=== PATIENT | female | born 1935 | race Caucasian/White ===

== ENCOUNTER → 2017-07-14 | Outpatient (CLI) | payer OTHER ==
[~2017-07-14] MED LIST: AMLO10TA4 PO; ATOR40TA69 PO; DHCO1CAP16 PO; ESCI20TA PO; FLUP1 PO; HYDR12.516 PO; LISI40TA4 PO; METO50TA9 PO; MULT-1203 PO; VITA1CAP PO; VITA400C25 PO
== END | disposition home or self-care (01) ==
LOC: OIH 16:44
PROVIDERS: ATTEND Family Medicine
DX: M17.12 Unilateral primary osteoarthritis, left knee (principal); M25.462 Effusion, left knee
CPT/HCPCS: 73562

== ENCOUNTER → 2017-08-25 | Outpatient (CLI) | payer OTHER | END | disposition home or self-care (01) | LOC: OIH 15:36 | PROVIDERS: ATTEND Family Medicine | DX: M19.011 Primary osteoarthritis, right shoulder (principal); M17.11 Unilateral primary osteoarthritis, right knee | CPT/HCPCS: 73030; 73562 ==

== ENCOUNTER → 2018-02-27 | Outpatient (CLI) | payer OTHER | END | disposition home or self-care (01) | LOC: OIH 16:03 | PROVIDERS: ATTEND Family Medicine | DX: M47.896 Other spondylosis, lumbar region (principal); M48.061 Spinal stenosis, lumbar region without neurogenic claudication; M41.86 Other forms of scoliosis, lumbar region; M47.892 Other spondylosis, cervical region | CPT/HCPCS: 72040; 72100; 72220 ==

== ENCOUNTER 2018-03-19 16:44 | Emergency (ER) | payer OTHER ==
[2018-03-19 18:00] LABS: BASOPHILS % (AUTO) 0.7 % (0.0-5.0); EOSINOPHILS % (AUTO) 2.9 % (0.0-8.0); HEMATOCRIT 35.6 % (36-48); LYMPHOCYTES % (AUTO) 20.3 % (21.0-51.0); MEAN CORPUSCULAR HEMOGLOBIN 24.7 pg (27.0-33.0); MEAN CORPUSCULAR HGB CONC 31.9 g/dL (32.0-36.0); MEAN CORPUSCULAR VOLUME 77.5 fL (79-99); NEUTROPHILS % (AUTO) 68.1 % (40.0-77.0); NUCLEATED RED BLOOD CELLS 0.1 % (0.0-0.19); PLATELET COUNT (AUTO) 289 K/uL (130-400); RED BLOOD CELL COUNT(AUTO) 4.59 MIL/uL (4.00-5.50); RED CELL DISTRIBUTION WIDTH 16.1 % (11.0-15.5); WHITE BLOOD COUNT (AUTO) 6.1 K/uL (4.8-10.8)
[2018-03-19 18:02] LABS: APPEARANCE,URINE CLEAR (CLEAR); BILIRUBIN,URINE NEGATIVE (NEGATIVE); COLOR,URINE YELLOW (YELLOW); GLUCOSE, URINE (UA) NEGATIVE (NEGATIVE); KETONES,URINE NEGATIVE (NEGATIVE); LEUKOCYTE ESTERASE ,URINE NEGATIVE (NEGATIVE); NITRATE,URINE NEGATIVE (NEGATIVE); OCCULT BLOOD,URINE NEGATIVE (NEGATIVE); PROTEIN,URINE NEGATIVE (NEGATIVE); UROBILINOGEN,URINE 0.2 mg/dL (0.2-1.0)
[2018-03-19 18:18] LABS: POTASSIUM 3.4 mmol/L (3.5-5.1)
[2018-03-19 18:23] LABS: ALBUMIN 3.9 g/dL (3.5-5.0); BILIRUBIN,TOTAL 0.5 mg/dL (0.2-1.0); TOTAL PROTEIN, SERUM 7.4 g/dL (6.0-8.3)
== END 2018-03-19 18:49 | disposition home or self-care (01) ==
LOC: EDH 16:44
DX: R53.1 Weakness (principal); H70.90 Unspecified mastoiditis, unspecified ear; R51 Headache; G89.29 Other chronic pain; I10 Essential (primary) hypertension; M19.90 Unspecified osteoarthritis, unspecified site; Z98.51 Tubal ligation status
CPT/HCPCS: 36415; 70450; 80053; 81003; 84484; 85025

== ENCOUNTER → 2018-08-10 | Outpatient (CLI) | payer OTHER ==
--- NOTE | 2018-08-10 13:57 | NUR ---
MBSS COMPLETED. -S/S OF ASPIRATION. RECOMMEND MECHANICAL SOFT/CHOPPED, THIN LIQUIDS; PILLS WHOLE WITH LIQUIDS. PATIENT INFORMATION: Pt IS AN 82 YEAR OLD FEMALE REFERRED FOR AN MBSS SECONDARY TO COMPLAINS OF DIFFICULTY SWALLOWING. PT COOPERATIVE DURING THE EVALUATION. Pt REPORTS THAT SHE HAS GLOBUS SENSATION DURING P.O. Pt REPORTS A RECENT DIAGNOSIS OF PARKINSON'S DISEASE AND THYROID ISSUES. MBSS INTERPRETATION: Pt PRESENTS WITH MILD ORAL AND MILD-MODERATE PHARYNGEAL DYSPHAGIA CAUSED BY DECREASED ORAL MOTOR COORDINATION, MILDLY DELAYED PHARYNGEAL RESPONSE AND POCKET FORMED IN POSTERIOR PHARYNGEAL WALL ABOVE UPPER ESOPHAGEAL SPHINCTER (POSSIBLE ZENKER'S DIVERTICULUM), EVIDENCED BY POOLING IN THE VALLECULAE (CLEARED WITH RE-SWALLOW) AND POOLING OF BOLUS ABOVE UPPER ESOPHAGEAL SPHINCTER. NO PENETRATION OR ASPIRATION PRESENT AT THE TIME OF THE EVALUATION. TRIALS: 1. TSP PUREED: GOOD 2. TSP PUDDING: GOOD 3. MIXED TEXTURE: GOOD 4. TSP THIN LIQUIDS: GOOD 5. CUP SIP THIN LIQUIDS: GOOD RECOMMENDATIONS: 1. MECHANICAL SOFT/CHOPPED, THIN LIQUIDS; PILLS WHOLE WITH LIQUIDS. 2. COMPENSATORY STRATEGIES: *SEATED AT 90 *SLOW RATE *RE-SWALLOW *ALTERNATE BITES AND SIP 3. GI CONSULT SECONDARY TO POSSIBLE ZENKER'S DIVERTICULUM. MOSAIC TECHNICIAN PROVIDED PT AND CAREGIVER WITH WRITTEN HANDOUT OF RECOMMENDATIONS. THEY VERBALIZED UNDERSTANDING AND COMPLIANCE WITH RECOMMENDATIONS. G-CODE SWALLOWING: [id number] Addendum: 08/10/18 at 1406 by YOLY GAINES, [facility] Amended: Links added.
== END | disposition home or self-care (01) ==
LOC: RAH 10:01
PROVIDERS: ATTEND Family Medicine
DX: E04.2 Nontoxic multinodular goiter (principal); K21.9 Gastro-esophageal reflux disease without esophagitis
CPT/HCPCS: 74230; 76536; 92611

== ENCOUNTER 2018-09-08 05:50 | Day surgery (SDC) | payer OTHER ==
[~2018-09-08] VITALS: Ht 162.6 cm; Wt 77.1 kg
[~2018-09-08 05:50] MED LIST changes: +SODIUM CHLORIDE 0.9% 1000ML 1,000 ML IV ONE
[2018-09-08 06:44] VITALS: BP 177/77
[2018-09-08] MEDS ORDERED: DULO30CA51 PO (07:04)
[2018-09-08] MEDS ORDERED: METO100T14 PO (07:04)
[2018-09-08] MEDS ORDERED: NAPR-1023 PO (07:04)
[2018-09-08] MEDS ORDERED: ATOR20TA65 PO (07:04)
[2018-09-08] MEDS ORDERED: FURO20TA4 PO (07:04)
[2018-09-08] MEDS ORDERED: CARB-38 PO (07:04)
[2018-09-08] MEDS ORDERED: BUSPIRONE (07:04)
[2018-09-08] MEDS ORDERED: OMEP20CA10 PO (07:04)
[2018-09-08] MEDS ORDERED: MECL-129 PO (07:04)
[2018-09-08 07:52] VITALS: BP 167/69
[2018-09-08] MEDS ORDERED: PROPOFOL 10 MG/ML 20ML VIAL IV ONE (07:55)
[2018-09-08 07:57] VITALS: BP 165/70
[2018-09-08 08:04] VITALS: BP 167/70
== END 2018-09-08 08:25 | disposition home or self-care (01) ==
LOC: ENDO 05:50 → DAH 05:50 → ENDO 08:25
PROVIDERS: ATTEND Internal Medicine
DX: K29.50 Unspecified chronic gastritis without bleeding (principal); K31.9 Disease of stomach and duodenum, unspecified; Z79.899 Other long term (current) drug therapy; Z98.890 Other specified postprocedural states; M19.90 Unspecified osteoarthritis, unspecified site; F41.9 Anxiety disorder, unspecified; F32.9 Major depressive disorder, single episode, unspecified; I10 Essential (primary) hypertension; G20 Parkinson's disease; E78.5 Hyperlipidemia, unspecified; K44.9 Diaphragmatic hernia without obstruction or gangrene; K22.8 Other specified diseases of esophagus
CPT/HCPCS: 43239; 93005; A4606; J2704; J7030

== ENCOUNTER → 2018-10-09 | Outpatient (CLI) | payer OTHER ==
[~2018-10-09] MED LIST changes: +ATOR20TA65 PO; -ATOR40TA69 PO; +BUSPIRONE; +CARB-38 PO; -DHCO1CAP16 PO; +DULO30CA51 PO; -ESCI20TA PO; +FURO20TA4 PO; -HYDR12.516 PO; +MECL-129 PO; +METO100T14 PO; -METO50TA9 PO; -MULT-1203 PO; +NAPR-1023 PO; +OMEP20CA10 PO; -SODIUM CHLORIDE 0.9% 1000ML 1,000 ML IV ONE; -VITA1CAP PO; -VITA400C25 PO
== END | disposition home or self-care (01) ==
LOC: SHCH 14:27
PROVIDERS: ATTEND Internal Medicine Cardiovascular Disease
DX: I11.9 Hypertensive heart disease without heart failure (principal); I34.0 Nonrheumatic mitral (valve) insufficiency; I31.3 Pericardial effusion (noninflammatory)
CPT/HCPCS: 93306

== ENCOUNTER → 2019-04-05 | Outpatient (CLI) | payer OTHER ==
[~2019-04-05] MED LIST changes: -DULO30CA51 PO; +DULO30CA52 PO; +OMEP-298 PO; -OMEP20CA10 PO
--- NOTE | 2019-04-05 11:00 | NUR ---
MBSS COMPLETED. +PENETRATION WITH THIN AND NECTAR-THICK LIQUIDS VIA LARGE CUP SIPS. RECOMMEND REGULAR TEXTURE, THIN LIQUIDS (VIA SMALL CUP SIP); PILLS WHOLE WITH LIQUIDS. SUPERVISOR PAINT ROLLER COVERS EDUCATED Pt AND CAREGIVER ON RISKS AND CONSEQUENCES OF ASPIRATION. RESULTS AND RECOMMENDATIONS WERE EXTENSIVELY PROVIDED VIA VERBAL AND WRITTEN MODALITY. THEY VERBALIZED UNDERSTANDING AND AGREEMENT WITH RECOMMENDATIONS. COMPENSATORY STRATEGIES ARE TO BE FOLLOWED STRICTLY. Addendum: 04/05/19 at 1235 by YOLY GAINES [facility] Amended: Links added.
== END | disposition home or self-care (01) ==
LOC: RAH 10:22
PROVIDERS: ATTEND Internal Medicine Gastroenterology
DX: R13.12 Dysphagia, oropharyngeal phase (principal); I10 Essential (primary) hypertension
CPT/HCPCS: 74230; 92611

== ENCOUNTER 2019-07-09 18:17 | Inpatient (IN) | payer OTHER ==
[~2019-07-09] VITALS: Ht 165.1 cm; Wt 76.8 kg
[~2019-07-09 18:17] MED LIST changes: -OMEP-298 PO; +OMEP20CA12 PO
[2019-07-09 18:45] LABS: BASOPHILS % (AUTO) 0.6 % (0.0-5.0); EOSINOPHILS % (AUTO) 3.5 % (0.0-8.0); HEMATOCRIT 27.9 % (36-48); LYMPHOCYTES % (AUTO) 11.8 % (21.0-51.0); MEAN CORPUSCULAR HEMOGLOBIN 22.1 pg (27.0-33.0); MEAN CORPUSCULAR HGB CONC 30.1 g/dL (32.0-36.0); MEAN CORPUSCULAR VOLUME 73.4 fL (79-99); NEUTROPHILS % (AUTO) 75.7 % (40.0-77.0); PLATELET COUNT (AUTO) 400 K/uL (130-400); RED CELL DISTRIBUTION WIDTH 16.5 % (11.0-15.5); WHITE BLOOD COUNT (AUTO) 7.1 K/uL (4.8-10.8)
[2019-07-09 18:59] LABS: CREATININE 1.1 mg/dL (0.5-1.5); POTASSIUM 4.2 mmol/L (3.5-5.1)
[2019-07-09 19:03] LABS: ALBUMIN 3.5 g/dL (3.5-5.0); BILIRUBIN,TOTAL 0.4 mg/dL (0.2-1.0); TOTAL PROTEIN, SERUM 7.1 g/dL (6.0-8.3)
[2019-07-09 19:08] LABS: ABG BASE EXCESS -1.9 mmol/L (-2.0-3.0); ABG HCO3 20.5 mmol/L (21.0-28.0); ABG OXYGEN SATURATION 90.9 % (95.0-99.0); ABG PCO2 29 mmHg (32-45)
[2019-07-09] MEDS ORDERED: IPRATROPIUM/ALBUTEROL SULFATE 3 ML SOLUTION IH ONE (19:11)
[2019-07-09 19:29] LABS: B-TYPE NATRIURETIC PEPTIDE 336 pg/mL (0-100)
[2019-07-09] MEDS ORDERED: FUROSEMIDE 10 MG/ML 4ML VIAL ONE (19:55)
[2019-07-09] MEDS ORDERED: ASPIRIN 325 MG TABLET ONE (20:48)
[2019-07-09] MEDS ORDERED: IOHEXOL-350 75 ML VIAL IV ONE (20:52)
[2019-07-09] MEDS: METOPROLOL TARTRATE 25 MG TAB PO SCH (21:51)
[2019-07-09] MEDS ORDERED: GUAIFENESIN SUGAR-FREE 100 MG/5 ML UDCUP PO PRN (22:00)
[2019-07-09] MEDS ORDERED: GUAIFENESIN-DM 200/20 MG 10 ML PO PRN (22:00)
[2019-07-09] MEDS ORDERED: POTASSIUM CHLORIDE 20 MEQ ERTAB PO PRN (22:00)
[2019-07-09] MEDS ORDERED: LACTULOSE 20 GM/30 ML UDCUP PO PRN (22:00)
[2019-07-09] MEDS ORDERED: LIDOCAINE HCL-MPF 1% 2ML VIAL IJ PRN (22:00)
[2019-07-09] MEDS ORDERED: POTASSIUM CHLORIDE 20MEQ/100ML 100 ML IV PRN (22:00)
[2019-07-09] MEDS: FUROSEMIDE 10 MG/ML 4ML VIAL IVP SCH (22:00)
[2019-07-09] MEDS ORDERED: SODIUM CHLORIDE 0.9% 10 ML VIAL IVP SCH (22:00)
[2019-07-09] MEDS: NITROGLYCERIN 1GM/1 INCH PACKET TD SCH (22:00)
[2019-07-09] MEDS ORDERED: ACETAMINOPHEN 325 MG TAB PO PRN ×2 (22:00)
[2019-07-09] MEDS ORDERED: DIPHENHYDRAMINE HCL 25 MG CAPSULE PO PRN (22:00)
[2019-07-09] MEDS ORDERED: ZOLPIDEM TARTRATE 5 MG TAB PO PRN (22:00)
[2019-07-09] MEDS ORDERED: CLONIDINE HCL 0.1 MG TABLET PO PRN (22:00)
[2019-07-09] MEDS ORDERED: DiphenhydrAMINE HCL 50 MG/ML VIAL IVP PRN (22:00)
[2019-07-09] MEDS ORDERED: GLUCAGON 1MG KIT 1 MG ML IM PRN (22:00)
[2019-07-09] MEDS ORDERED: DEXTROSE 50%-WATER 50 ML DISP.SYRIN IV PRN (22:00)
[2019-07-09] MEDS ORDERED: ONDANSETRON HCL 4 MG/2 ML VIAL IVP PRN (22:00)
[2019-07-09] MEDS ORDERED: NITROGLYCERIN 0.4 MG SL TAB SL PRN (22:00)
[2019-07-09] MEDS ORDERED: MAG HYDROX/AL HYDROX/SIMETH ES 30 ML SUSP UDCUP PO PRN (22:00)
[2019-07-09] MEDS ORDERED: POTASSIUM CHLORIDE 10% ELIXIR 20 MEQ/15 ML UDCUP PO PRN (22:00)
[2019-07-10 01:16] LABS: CREATINE KINASE, TOTAL 40 U/L (21-232); MYOGLOBIN 73 ng/mL (10-92); TROPONIN I < 0.04 ng/mL (0.00-0.06)
[2019-07-10] MEDS ORDERED: ACETAMINOPHEN 325 MG TAB ONE ×2 (02:32→15:49)
[2019-07-10] MEDS ORDERED: NITROGLYCERIN 1GM/1 INCH PACKET TD ONE ×3 (04:03→20:23)
[2019-07-10 05:56] LABS: BASOPHILS % (AUTO) 0.5 % (0.0-5.0); HEMATOCRIT 26.5 % (36-48); LYMPHOCYTES % (AUTO) 11.3 % (21.0-51.0); MEAN CORPUSCULAR HEMOGLOBIN 21.6 pg (27.0-33.0); MEAN CORPUSCULAR HGB CONC 29.8 g/dL (32.0-36.0); MEAN CORPUSCULAR VOLUME 72.6 fL (79-99); MONOCYTES % (AUTO) 7.6 % (3.0-13.0); NEUTROPHILS % (AUTO) 77.3 % (40.0-77.0); PLATELET COUNT (AUTO) 353 K/uL (130-400); RED BLOOD CELL COUNT(AUTO) 3.65 MIL/uL (4.00-5.50); RED CELL DISTRIBUTION WIDTH 16.6 % (11.0-15.5); WHITE BLOOD COUNT (AUTO) 6.1 K/uL (4.8-10.8)
[2019-07-10] MEDS: NITROGLYCERIN 1GM/1 INCH PACKET TD SCH ×3 (06:00→22:00)
[2019-07-10 06:35] LABS: CARBON DIOXIDE 24 mmol/L (21-32); CHLORIDE 97 mmol/L (101-111); GLOMERULAR FILTR. RATE CALC 56 mL/min (>60); GLUCOSE,RANDOM 106 mg/dL (70-105); POTASSIUM 3.7 mmol/L (3.5-5.1); SODIUM SERUM 132 mmol/L (136-145); UREA NITROGEN, BLOOD 17 mg/dL (7-18)
[2019-07-10 06:50] LABS: ALANINE AMINOTRANSFERASE 13 U/L (12-78); ALBUMIN 3.3 g/dL (3.5-5.0); ASPARTATE AMINOTRANSFERASE 14 U/L (10-37); BILIRUBIN,TOTAL 0.4 mg/dL (0.2-1.0); CREATINE KINASE, TOTAL 43 U/L (21-232); MYOGLOBIN 76 ng/mL (10-92); TOTAL PROTEIN, SERUM 6.8 g/dL (6.0-8.3); TROPONIN I < 0.04 ng/mL (0.00-0.06)
[2019-07-10] MEDS: INSULIN R PO SSI SQ SCH ×4 (07:30→21:00)
[2019-07-10] MEDS: METOPROLOL TARTRATE 25 MG TAB PO SCH ×2 (09:00→21:00)
[2019-07-10] MEDS ORDERED: FUROSEMIDE 10 MG/ML 4ML VIAL ONE ×2 (09:17→20:22)
[2019-07-10] MEDS ORDERED: METOPROLOL TARTRATE 25 MG TAB ONE ×2 (09:17→20:23)
[2019-07-10] MEDS: FUROSEMIDE 10 MG/ML 4ML VIAL IVP SCH ×2 (10:00→22:00)
[2019-07-10] MEDS ORDERED: CARB1TAB20 PO (10:35)
[2019-07-10] MEDS ORDERED: BUSP5TAB3 PO (10:35)
[2019-07-10] MEDS ORDERED: FOLI0.4T2 PO (10:35)
[2019-07-10 13:09] LABS: CREATINE KINASE, TOTAL 51 U/L (21-232); MYOGLOBIN 73 ng/mL (10-92); TROPONIN I < 0.04 ng/mL (0.00-0.06)
--- NOTE | 2019-07-10 16:47 | NUR ---
INITIAL Patient lives alone but has 22/11 private sitters that help care for her. Emergency contact is son, George Chavez, and stepdaughter, Trinity Martinez, . One of the private sitters is Bertasa Lane, . Patient has no home services. DME: walker with seat, wheelchair, BPM. Patient needs help with ADL's but does not drive. PCP is Dr. Enoc Payton. Pharmacy is [facility] located on [address] [place] [address]. DCP is home. Addendum: 07/10/19 at 1650 by MILAN DENISE Amended: Links added.
[2019-07-11 04:01] VITALS: BP 148/74
[2019-07-11] MEDS: NITROGLYCERIN 1GM/1 INCH PACKET TD SCH (05:55)
[2019-07-11] MEDS: INSULIN R PO SSI SQ SCH ×4 (05:57→21:00)
[2019-07-11 07:00] VITALS: BP 138/51
--- NOTE | 2019-07-11 07:45 | NUR ---
AM ASSESSMENT PT LAYING IN BED, HOB ELEVATED 30 DEGREES, RESTING. PT'S PROVIDER @ BEDSIDE. ORIENTED TO SELF. SOB ON EXERTION. NO DISTRESS NOTED. O2 NC @ 2L. DENIES CHEST PAIN OR DISCOMFORT. TELE: SR. NO N/V AND/OR DIARRHEA. INCONTINENT BOWEL & BLADDER. BEDREST. INSTRUCTED TO CALL FOR ASSISTANCE. CALL KEYONA W/IN REACH.
[2019-07-11] MEDS: FUROSEMIDE 10 MG/ML 4ML VIAL IVP SCH (07:56)
[2019-07-11] MEDS: METOPROLOL TARTRATE 25 MG TAB PO SCH ×2 (07:58→20:22)
[2019-07-11 11:00] VITALS: BP 117/52
[2019-07-11] MEDS: CARBIDOPA-LEVODOPA 25-100 TAB PO SCH ×2 (12:00→16:32)
[2019-07-11 15:00] VITALS: BP 136/61
[2019-07-11] MEDS: FUROSEMIDE 40 MG TABLET PO SCH (16:32)
[2019-07-11] MEDS ORDERED: FUROSEMIDE 10 MG/ML 4ML VIAL IVP SCH (17:00)
[2019-07-11 20:02] VITALS: BP 130/53
[2019-07-11] MEDS: BUSPIRONE HCL 5 MG TABLET PO SCH (20:22)
[2019-07-11] MEDS: DULOXETINE HCL 30 MG CAP PO SCH (20:22)
[2019-07-11] MEDS: ATORVASTATIN CALCIUM 20 MG TABLET PO SCH (20:22)
[2019-07-11] MEDS: LISINOPRIL 40 MG TABLET PO SCH (20:23)
[2019-07-11] MEDS: NAPROXEN 500 MG TABLET PO SCH (20:23)
[2019-07-11 23:46] VITALS: BP 125/81
[2019-07-12] VITALS (8 sets, daily range): BP systolic 109–131; BP diastolic 39–68
[2019-07-12] MEDS: INSULIN R PO SSI SQ SCH (05:28)
--- NOTE | 2019-07-12 08:30 | NUR ---
AM ASSESSMENT PT LAYING IN BED, HOB ELEVATED 30 DEGREES, RESTING. A/O X 3. FORGETFUL @ TIMES. NO SOB. NO DISTRESS NOTED. DENIES CHEST PAIN OR DISCOMFORT. DENIES PALPITATIONS. TELE: SR. DENIES N/V AND/OR DIARRHEA. INCONTINENT BLADDER & BOWEL. OOB TO CHAIR W/ASSISTANCE. PER PT'S PROVIDER, KOLE CONTI "HALLUCINATING & SCREAMING LAST NIGHT." NIGHT STAFF NOT NOTIFIED. INSTRUCTED TO CALL FOR ASSISTANCE. CALL KEYONA W/IN REACH.
[2019-07-12] MEDS: NAPROXEN 500 MG TABLET PO SCH ×2 (08:43→20:24)
[2019-07-12] MEDS: DULOXETINE HCL 30 MG CAP PO SCH ×2 (08:44→20:24)
[2019-07-12] MEDS: PANTOPRAZOLE SODIUM 40 MG TABLET.DR PO SCH (08:44)
[2019-07-12] MEDS: BUSPIRONE HCL 5 MG TABLET PO SCH ×2 (08:44→20:23)
[2019-07-12] MEDS: METOPROLOL TARTRATE 25 MG TAB PO SCH ×2 (08:44→20:23)
[2019-07-12] MEDS: FOLIC ACID 1 MG TABLET PO SCH (08:44)
[2019-07-12] MEDS: CARBIDOPA-LEVODOPA 25-100 TAB PO SCH ×3 (08:44→16:17)
[2019-07-12] MEDS: AMLODIPINE BESYLATE 5 MG TAB PO SCH (08:44)
[2019-07-12] MEDS: FUROSEMIDE 40 MG TABLET PO SCH ×2 (08:45→16:17)
[2019-07-12] MEDS: FLUPHENAZINE HCL 1 MG PO SCH (08:45)
--- NOTE | 2019-07-12 13:30 | NUR ---
MMSE Erwin contacted Adriana bey Cm requesting MMSE on pt. Caregiver states pt is able to make decisions but son George is incharge of pt care and decision making. Erwin met with pt who is awake,alert,yand oriented x 3. Pt states she is for 5yrs since of cancer. Pt reports she is a [place] that decided to stay in [place] permanently. Pt states she has two 24/7 caregivers in her home. Caregiver Lisette was in room during interview. Pt reports she has Parkinson's and can't even write her name, but she is open to doing MMSE. Pt's total score was 25 of 30 = within normal limits. Scoring was as follows Orientation: 10 of 10 Immediate Recall 3 of 3 Attention & calculation 2 of 5 Recall 2 of 3 Naming 2 of 2 Repetition 1 of 1 3 stage command 3 of 3 reading 1 of 1 Writing 0 - because pt is unable to write r/t Parkinsons. pt is able to verbalize complete sentences Copying 1 of 1 Please see test on chart.
--- NOTE | 2019-07-12 13:58 | NUR ---
STATUS PT TO BE GIVEN A SHOWER BY PROVIDER GALLITO IN BATHRM. PT TRANSFERRED IN TO BATHRM VIZ .
--- NOTE | 2019-07-12 17:38 | NUR ---
DC PLAN VISITED WITH PATIENT. LAYTON FROM [facility] CALLED SAID THEY DO NOT HAVE A BED AVAILABLE. SAID THEY MIGHT HAVE A FEMALE BED ON TUESDAY. MD NOTIFIED SAID PATIENT WILL BE READY TO DC BEFORE THEN AND TO RECOMMEND [facility] OR [facility] ALTERNAT[facility]. WENT INTO PATIENT ROOM. CAREGIVER TAKING A SHOWER ASKED ME TO COME BACK. SPOKE PATIENT AND THEY AGREED. CAME BACK INTO THE ROOM TO EXPLAIN THE SITUATION AND GIVE ALTERNATIVES. PATIENT SAID THEY WOULD RATHER GO HOME IF THEY COULD NOT GO TO [facility]. KYRIEGIVER INTERRUPTED PATIENT AND SAID IT "DID NOT MATTER, SON WILL MAKE DECISION" I EXPLAINED THAT PATIENT IS LUCID AND DOES NOT HAVE A HISTORY OF ALZHEIMERS OR DEMENTIA. CAREGIVER SAID " SHE SIGNED PAPERWORK TO GIVE HER SON THE RIGHT TO MAKE DECISIONS AND THAT HE WOULD SAY WHAT WOULD HAPPEN" I EXPLAINED THAT WHILE PATIENT CAN MAKE DECISIONS THEN SHE STILL HAS THE RIGHT TO MAKE THEM. THE CAREGIVER BECAME CONFRONTATIONAL AT THIS POINT RAISING VOICE AND SAYING HOW WE CAN SAY SHE IS OKAY WHEN SHE HAS BEEN SCREAMING AND YELLING AND SEEING THINGS AND TALKING TO PEOPLE THAT ARE NOT THERE. I ASKED NURSING STAFF IF ANY EVENT HAD BEEN WITNESSED EVEN AT NIGHT. PER NURSE NO SCREAMING OR YELLING. CAREGIVER NEVER NOTIFIED STAFF OF HALLUCINATIONS. CAREGIVER ON PHONE WITH A ANOTHER FAMILY MEMBER. I EXPLAINED TO PATIENT WHAT THE SITUATION WAS AND THAT FAMILY HAD CONCERNS AND IF OKAY IF I TALK TO HER FAMILY SO I COULD ANSWER THEIR QUESTIONS. PATIENT AGREED. I TOLD CAREGIVER THAT I WOULD CALL SON SINCE HE IS THE POA TO LET HIM KNOW. SAID NO DONT CALL HIM HE DOES NOT CARRY PHONE. I WILL TELL HIS SISTER AND THEY WILL GET BACK TO ME. I TOLD HER I STILL HAD TO TRY TO REACH SON MANAGER PROCESS IMPROVEMENT DID NOT AGREE. PATIENT SAID YES THEREFORE I CALLED SON. LEFT MESSAGE. SON CALLED ME BACK EXPLAINED TO HIM WHAT THEY SITUATION WAS. HE AGREED THAT POA IS ONLY WHEN PATIENT CAN NOT MAKE DECISION. WILL CALL MOM TO TRY TO CONVINCE OF NEED TO GO TO FACILITY. EXPLAINED THAT [facility] MIGHT NOT HAVE A BED AND I GAVE THE OTHER FACILITIES AVAILABLE THROUGH INSURANCE. ALSO THAT IF PATIENT DOES NOT AGREE WE CAN NOT FORCE PATIENT. SAID HE UNDERSTOOD. I DID LET HIM KNOW THAT WE WOULD DO A MINI MENTAL SINCE CAREGIVER HAS VOICED CONCERNS OVER PATIENT BEING ABLE TO MAKE DECISIONS. HE DID SAY SHE HAD TOLD HIM THE SAME THING AND SAID OKAY TO MINI MENTAL. RETAIL EVENT AND SALES ASSISTANT NOTIFIED. CAREGIVER SPEAKING TO OTHER PATIENT FAMILY MEMBER. SAID THE SAME THING INCLUDING THAT WE WERE MOCKING THEM REGARDING PATIENT BEING CONFUSED. THAT DOCTORS DID NOT EVEN SEE PATIENT. WHEN FAMILY ASKED IF HE HAD STOPPED BY SHE SAID YES BUT THAT HE WAS BARELY THERE. VOICED THAT NURSING STAFF IS NOT CARING ABOUT HALLUCINATIONS. CAREGIVER VERY LOUDLY TALKING WHILE CM TRYING TO TALK TO PATIENT. LET CM DIRECTOR KNOW OF SITUATION. RETAIL EVENT AND SALES ASSISTANT NOTIFIED OF NEED FOR MINI MENTAL. LET 2ND ULTRASONIC TESTER KNOW OF MANAGER PROCESS IMPROVEMENT CONCERNS WITH CM AND STAFF. Addendum: 07/12/19 at 1755 by ENRIQUETA CONN RN CM Amended: Links added.
[2019-07-12] MEDS: ATORVASTATIN CALCIUM 20 MG TABLET PO SCH (20:23)
[2019-07-12] MEDS: LISINOPRIL 40 MG TABLET PO SCH (20:23)
[2019-07-13 03:47] VITALS: BP 130/63
[2019-07-13 07:58] VITALS: BP 138/59
[2019-07-13] MEDS: FUROSEMIDE 40 MG TABLET PO SCH (08:56)
[2019-07-13] MEDS: FOLIC ACID 1 MG TABLET PO SCH (08:56)
[2019-07-13] MEDS: NAPROXEN 500 MG TABLET PO SCH (08:56)
[2019-07-13] MEDS: AMLODIPINE BESYLATE 5 MG TAB PO SCH (08:59)
[2019-07-13] MEDS: CARBIDOPA-LEVODOPA 25-100 TAB PO SCH ×2 (08:59→11:40)
[2019-07-13] MEDS: METOPROLOL TARTRATE 25 MG TAB PO SCH (08:59)
[2019-07-13] MEDS: PANTOPRAZOLE SODIUM 40 MG TABLET.DR PO SCH (08:59)
[2019-07-13] MEDS: BUSPIRONE HCL 5 MG TABLET PO SCH (08:59)
[2019-07-13] MEDS: DULOXETINE HCL 30 MG CAP PO SCH (08:59)
[2019-07-13] MEDS: FLUPHENAZINE HCL 1 MG PO SCH (09:00)
--- NOTE | 2019-07-13 09:00 | NUR ---
cm note call made to [facility] with [facility] and states pt has been approved and they have a bed aviailable. spoke to pt and caregiver, and updated on acceptance, are in agreement for transfer to [facility] today. updated primary nurse.
[2019-07-13 12:14] VITALS: BP 130/58
[2019-07-13] MEDS ORDERED: SULF1TAB42 PO (13:14)
--- NOTE | 2019-07-13 13:42 | NUR ---
Patient doing well in stable condition. NO complaints of pain. Report given to Nurse Dyana Vazquez at [facility] at approximately 1200. Bactrim DS ordered by Dr Payton to address blood culture results.
== END 2019-07-13 14:55 | DRG 291 ==
LOC: EDH 18:17 → OBSVTOIN 21:15 → EDHIP 21:15 → 2DH 07-11 03:20
PROVIDERS: ADMIT Family Medicine; ATTEND Family Medicine
DX: I11.0 Hypertensive heart disease with heart failure (principal); I50.21 Acute systolic (congestive) heart failure; E87.1 Hypo-osmolality and hyponatremia; E78.5 Hyperlipidemia, unspecified; G20 Parkinson's disease; E11.9 Type 2 diabetes mellitus without complications; M62.81 Muscle weakness (generalized)
CPT/HCPCS: 36415; 36600; 71045; 71275; 80053; 82550; 82803; 82948; 83605; 83874; 83880; 84484; 85025; 85378; 87040; 87077; 87186; 93005; 93306; 93356; 93970; 94640; 97039; 99291; G0378; J1940; J2405; Q9967